=== PATIENT | male | born 1960 | race Caucasian/White ===

== ENCOUNTER → 2016-05-04 | Emergency (ER) | payer OTHER ==
[~2016-05-04] VITALS: Ht 175.3 cm; Wt 77.5 kg
[~2016-05-04] MED LIST: ALBU8.5H3 INH; AZIT500T3 PO; BENZ100C70 PO
[2016-05-04 03:10] VITALS: Ht 175.3 cm; Wt 77.5 kg
--- NOTE | 2016-05-04 03:44 | ERD ---
ER Documentation Chief Complaint Date/Time DATE: 05/04/16 TIME: 03:38 Chief Complaint htn/tachycardia for a while. HPI 56-year-old male who presents the emergency room complaining of hypertension. He states, "my resting heart rate and blood pressure has been elevated ever since I moved into [place] because of, you know, the methane gas, benzocaine, toluene and other heavy metals ". The patient denies any significant headache chest pain or shortness of breath, no nausea or vomiting. The symptoms have been present for several years. ROS All systems reviewed and are negative except as per history of present illness. Medications Home Meds Active Scripts Albuterol Sulfate* (Proair HFA*) 8.5 Gm Hfa.aer.ad, 2 PUFF INH Q4H Y for WHEEZING AND SOB, #1 INHALER Prov:ELAN CERON MD 05/15/15 Benzonatate* (Tessalon Perle*) 100 Mg Capsule, 200 MG PO Q8H Y for COUGH, #15 CAP Prov:ELAN CERON MD 05/15/15 Azithromycin* (Zithromax*) 500 Mg Tablet, 500 MG PO DAILY for 3 Days, TAB Prov:ELAN CERON MD 05/15/15 Allergies Allergies: Coded Allergies: No Known Drug Allergies (Verified Allergy, Unknown, 05/04/16) PMhx/Soc History of Surgery: Yes (tonsillectomy, jaw sx ) Anesthesia Reaction: No Hx Neurological Disorder: No Hx Respiratory Disorders: Yes (asthma) Hx Cardiac Disorders: No Hx Psychiatric Problems: Yes (BIPOLAR DISORDER) Hx Miscellaneous Medical Probl: No Hx Alcohol Use: Yes (occassional) Hx Substance Use: No Hx Tobacco Use: No Smoking Status: Never smoker FmHx Family History: No diabetes Physical Exam Vitals Vital Signs Date Time Temp Pulse Resp B/P Pulse Ox O2 Delivery O2 Flow Rate FiO2 05/04/16 03:10 98.0 78 20 167/93 99 Physical Exam General: Well developed, well nourished, no acute distress Head: Normocephalic, atraumatic. Eyes: Pupils equally reactive, EOM intact ENT: Moist mucous membranes Neck: Supple, no lymphadenopathy Respiratory: Lungs clear bilaterally, no distress Cardiovascular: RRR, no murmurs, rubs, or gallops Abdominal: Soft, non-tender, non-distended, no peritoneal signs : Deferred MSK: No edema, no unilateral swelling, 5/5 strength Neurologic: Alert and oriented, moving all extremities, normal speech, no focal weakness, no cerebellar signs Skin: No rash Psych: Normal mood Procedures/MDM Patient's blood pressure was elevated (>120/80) but appears stable without evidence of hypertensive emergency or urgency. The patient was counseled about the risks of hypertension and urged to pursue outpatient monitoring and therapy within a week with their primary care physician. I recommended initiation of antihypertensive medication. The patient said "nope ". The patient states that he needs to get a methane out of his body. I attempted to explain to the patient that methane is more of a nuisance and does not cause any significant medical issues especially not tachycardia and hypertension. I am concerned that the patient's hypertension is related to essential hypertension. The patient refuses to accept this. The patient cannot articulate why he presents to the emergency room I asked multiple times if there are other things that I can offer to help him this evening. The patient cannot articulate a solution. At this time the patient does not exhibit an acute medical condition. I am concerned that the patient's underlying issues are more related to underlying psychiatric illness versus depression versus delusions rather than acute medical condition. At this time I feel the patient is safe for discharge I strongly recommended primary care follow-up and provided referral information. The patient was discharged from the emergency room. Departure Diagnosis: Primary Impression: Essential hypertension Condition: Stable Patient Instructions: Hypertension, To Be Confirmed Referrals: [facility] YOU HAVE RECEIVED A MEDICAL SCREENING EXAM AND THE RESULTS INDICATE THAT YOU DO NOT HAVE A CONDITION THAT REQUIRES URGENT TREATMENT IN THE EMERGENCY DEPARTMENT. FURTHER EVALUATION AND TREATMENT OF YOUR CONDITION CAN WAIT UNTIL YOU ARE SEEN IN YOUR DOCTORS OFFICE WITHIN THE NEXT 1-2 DAYS. IT IS YOUR RESPONSIBILITY TO MAKE AN APPOINTMENT FOR FOLOW-UP CARE. IF YOU HAVE A PRIMARY DOCTOR --you should call your primary doctor and schedule an appointment IF YOU DO NOT HAVE A PRIMARY DOCTOR YOU CAN CALL OUR PHYSICIAN REFERRAL HOTLINE AT IF YOU CAN NOT AFFORD TO SEE A PHYSICIAN YOU CAN CHOSE FROM THE FOLLOWING [facility] [address] [facility]. [facility] [address] [facility]. [facility] [address] [facility] [address] [facility] [address] [facility]. [facility]. [address] [facility]. [facility] YOU HAVE RECEIVED A MEDICAL SCREENING EXAM AND THE RESULTS INDICATE THAT YOU DO NOT HAVE A CONDITION THAT REQUIRES URGENT TREATMENT IN THE EMERGENCY DEPARTMENT. FURTHER EVALUATION AND TREATMENT OF YOUR CONDITION CAN WAIT UNTIL YOU ARE SEEN IN YOUR DOCTORS OFFICE WITHIN THE NEXT 1-2 DAYS. IT IS YOUR RESPONSIBILITY TO MAKE AN APPOINTMENT FOR FOLOW-UP CARE. IF YOU HAVE A PRIMARY DOCTOR --you should call your primary doctor and schedule and appointment IF YOU DO NOT HAVE A PRIMARY DOCTOR YOU CAN CALL OUR PHYSICIAN REFERRAL HOTLINE AT . IF YOU CAN NOT AFFORD TO SEE A PHYSICIAN YOU CAN CHOSE FROM THE FOLLOWING [facility] INSTITUTIONS: [facility] [address] [place] [address] [facility] [address] [place] [address] [facility] + [facility] [address] [place] [address] Additional Instructions: Call your primary care doctor TOMORROW for an appointment during the next 1 WEEK.Tell the sledger that you were referred from this facility.See the doctor sooner or return here if your condition worsens before your appointment time. JERRELL JACOB MD May 04, 2016 03:44
[2016-05-04 04:15] VITALS: BP 160/90; PULSE 75; RESP 20; TEMP 98
== END | disposition home or self-care (01) ==
LOC: E/R 02:43
DX: I10 Essential (primary) hypertension (principal); J45.909 Unspecified asthma, uncomplicated
CPT/HCPCS: 99282

== ENCOUNTER 2016-05-18 02:47 | Observation (INO) | payer OTHER ==
[~2016-05-18] VITALS: Ht 175.3 cm; Wt 76.0 kg
[2016-05-18] VITALS (11 sets, daily range): BP systolic 128–168; BP diastolic 74–95; PULSE 70–84; RESP 13–24; Ht 175.3 cm; Wt 76.0 kg
--- NOTE | 2016-05-18 05:05 | RADRPT ---
PROCEDURE: CT Abdomen and pelvis without contrast. CLINICAL INDICATION: Abdominal pain. TECHNIQUE: CT scan of the abdomen and pelvis was performed on a multi-detector high-resolution CT scanner. Contiguous axial images were obtained from the lung bases to the ischial tuberosities wit hout intravenous contrast. Coronal and sagittal reformatted images were also obtained. Images were reviewed on the PACS workstation. One or more of the following dose reduction techniques were used: - Automated exposure control. - Adjustment of the mA and/or kV according to patient size. - Use of iterative reconstruction technique. Exam CTD/vol = 9.79 mGy. Total exam DLP = 565.26 mGy-cm. COMPARISON: None. FINDINGS: Evaluation of the lung bases demonstrates no pleural or parenchymal disease. Abdomen: The liver is normal in size. There is no focal mass or dilatation of the biliary tree. T he gallbladder is not distended. The spleen, pancreas and bilateral adrenal glands are within willi l limits. Bilateral kidneys are normal in size with no contour deforming mass identified. There is no radiopaque renal or ureteral calculus identified. There is no hydronephrosis or hydroureter. T here is no retroperitoneal adenopathy. The abdominal aorta is of normal caliber with scattered athe rosclerotic calcifications. There is a cone-shaped foreign body within the rectum measuring 14.5 cm in length and 7.4 cm in widt h the at the inferior base. There is no bowel obstruction or free air. A normal appendix is identi fied. There is no diverticulosis or diverticulitis. There is no ascites. Pelvis: The bladder is unremarkable. There are bilateral small inguinal hernias containing fat. T he prostate and seminal vesicles are within normal limits. There is no significant pelvic adenopath y or free fluid. Evaluation of the osseous structures demonstrates no suspicious lytic or blastic lesion. IMPRESSION: Rectal foreign body. There is no evidence of bowel obstruction, intra-abdominal collection or free air to suggest perforation. Bilateral small inguinal hernias containing fat. Mild vascular calcifications reflective of atherosclerosis. .Ravin Moe MD, MD Date Time Electronically viewed and signed by .Ravin Moe MD, MD on 05/18/2016 05:04 .T/
[2016-05-18 05:09] LABS: BASOPHILS % 0.4 % (0.0-2.0); EOSINOPHILS # 0.1 10^3/ul (0.0-0.5); EOSINOPHILS % 0.6 % (0.0-7.0); HEMATOCRIT 43.4 % (42.0-52.0); HEMOGLOBIN 14.7 g/dl (14.0-18.0); LYMPHOCYTES # 2.3 10^3/ul (0.8-2.9); MEAN CORPUSCULAR HEMOGLOBIN 29.6 pg (29.0-33.0); MEAN CORPUSCULAR HGB CONC 33.9 g/dl (32.0-37.0); MEAN CORPUSCULAR VOLUME 87.3 fl (82.0-101.0); MEAN PLATELET VOLUME 10.1 fl (7.4-10.4); MONOCYTE # 0.5 10^3/ul (0.3-0.9); MONOCYTES % 4.5 % (0.0-11.0); NEUTROPHIL # 9.2 10^3/ul (1.6-7.5); NEUTROPHILS % 75.5 % (39.0-77.0); PLATELET COUNT 292 10^3/UL (140-440); RED BLOOD COUNT 4.97 10^6/ul (4.70-6.10); RED CELL DISTRIBUTION WIDTH 13.3 % (11.5-14.5); UNCORRECTED WBC 12.2 10^3/ul (4.8-10.8); WHITE BLOOD COUNT 12.2 10^3/ul (4.8-10.8)
[2016-05-18 05:12] LABS: CONDITION 1
[2016-05-18 05:23] LABS: INR 0.91; PROTIME 12.2 Sec (12.2-14.2)
[2016-05-18 05:24] LABS: PARTIAL THROMBOPLASTIN TIME 32.5 Sec (25.0-35.0)
[2016-05-18 05:27] LABS: ALBUMIN 4.5 g/dl (3.3-4.9); POTASSIUM 4.4 mmol/L (3.5-5.1)
[2016-05-18 05:29] LABS: CREATININE 0.96 mg/dl (0.61-1.24)
[2016-05-18 05:30] LABS: ALBUMIN/GLOBULIN RATIO 1.32; BILIRUBIN,INDIRECT 0.4 mg/dl (0-1.1); BILIRUBIN,TOTAL 0.4 mg/dl (0.2-1.3); CALCIUM 9.8 mg/dl (8.4-10.2); TOTAL PROTEIN 7.9 g/dl (6.1-8.1)
[2016-05-18] MEDS ORDERED: PIPER-TAZO 3.375 GM IV (PMX) 100 ML IVPB ONE (05:30)
--- NOTE | 2016-05-18 05:54 | ERA ---
ER Documentation Chief Complaint Date/Time DATE: 05/18/16 Chief Complaint foreign body in rectum HPI The patient is a 56-year-old male, presenting to the ER because he inserted plastics expiratory into his rectum about 8 PM and he is unable to retrieve it. He has done it multiple times but this is the first of he could not retrieve it. He denies any rectal bleeding, fever, chill, neck pain, chest pain, abdominal pain, vomiting, dysuria, diarrhea. He is bisexual, denies smoking or drinking Past medical history: None Past surgical history: Jaw surgery and tonsillectomy ROS All systems reviewed and are negative except as per history of present illness. Medications Home Meds Active Scripts Albuterol Sulfate* (Proair HFA*) 8.5 Gm Hfa.aer.ad, 2 PUFF INH Q4H Y for WHEEZING AND SOB, #1 INHALER Prov:ELAN CERON MD 05/15/15 Benzonatate* (Tessalon Perle*) 100 Mg Capsule, 200 MG PO Q8H Y for COUGH, #15 CAP Prov:ELAN CERON MD 05/15/15 Azithromycin* (Zithromax*) 500 Mg Tablet, 500 MG PO DAILY for 3 Days, TAB Prov:ELAN CERON MD 05/15/15 Allergies Allergies: Coded Allergies: No Known Drug Allergies (Verified Allergy, Unknown, 05/04/16) PMhx/Soc History of Surgery: Yes (tonsillectomy, jaw sx ) Anesthesia Reaction: No Hx Neurological Disorder: No Hx Respiratory Disorders: Yes (asthma) Hx Cardiac Disorders: Yes (HTN) Hx Psychiatric Problems: Yes (BIPOLAR DISORDER) Hx Miscellaneous Medical Probl: No Hx Alcohol Use: Yes (occassional) Hx Substance Use: No Hx Tobacco Use: No Smoking Status: Never smoker Physical Exam Vitals Vital Signs Date Time Temp Pulse Resp B/P Pulse Ox O2 Delivery O2 Flow Rate FiO2 05/18/16 03:02 98.1 83 18 191/97 97 Physical Exam Const: No acute distress. Head: Atraumatic. Eyes: Normal Conjunctiva. ENT: Normal External Ears, Nose and Mouth. Neck: Full range of motion. No meningismus. Resp: Clear to auscultation bilaterally. Cardio: Regular rate and rhythm, no murmurs. Abd: Soft, non distended, normal bowel sounds, non tender. Skin: No petechiae or rashes. Back: No midline or flank tenderness. Ext: No cyanosis, or edema. Neur: Awake and alert. No focal deficit Psych: Normal Mood and Affect. Result Diagram: 05/18/160 05/18/16439 Results 24 hrs Laboratory Tests Test 05/18/16 04:40 Activated Partial Thromboplast Time 32.5Sec Alanine Aminotransferase (ALT/SGPT) 28IU/L Albumin 4.5g/dl Albumin/Globulin Ratio 1.32 Alkaline Phosphatase 72IU/L Anion Gap 19 Aspartate Amino Transf (AST/SGOT) 30IU/L Basophils # 0.010^3/ul Basophils % 0.4% Blood Urea Nitrogen 20mg/dl Calcium Level 9.8mg/dl Carbon Dioxide Level 27mmol/L Chloride Level 104mmol/L Creatinine 0.96mg/dl Direct Bilirubin 0.00mg/dl Eosinophils # 0.110^3/ul Eosinophils % 0.6% Globulin 3.40g/dl Glucose Level 111mg/dl Hematocrit 43.4% Hemoglobin 14.7g/dl INR International Normalized Ratio 0.91 Indirect Bilirubin 0.4mg/dl Lipase 51U/L Lymphocytes # 2.310^3/ul Lymphocytes % 19.0% Mean Corpuscular Hemoglobin 29.6pg Mean Corpuscular Hemoglobin Concent 33.9g/dl Mean Corpuscular Volume 87.3fl Mean Platelet Volume 10.1fl Monocytes # 0.510^3/ul Monocytes % 4.5% Neutrophils # 9.210^3/ul Neutrophils % 75.5% Nucleated Red Blood Cells # 0.010^3/ul Nucleated Red Blood Cells % 0.0/100WBC Platelet Count 17969^3/UL Potassium Level 4.4mmol/L Prothrombin Time 12.2Sec Prothrombin Time Ratio 1.0 Red Blood Count 4.9710^6/ul Red Cell Distribution Width 13.3% Sodium Level 146mmol/L Total Bilirubin 0.4mg/dl Total Protein 7.9g/dl White Blood Count 12.210^3/ul Current Medications Medications (Trade) Dose Ordered Sig/Brien Route PRN Reason Start Time Stop Time Status Last Admin Dose Admin Piperacillin Sod/ Tazobactam Sod (Zosyn 3.375gm/ 100 ml (Pmx)) 100 ml @ 200 mls/hr ONCE ONCE IVPB 05/18/16 05:30 05/18/16 05:59 05/18/16 05:51 Procedures/MDM [place] [address] Rad[address] Main Line: [phone] DIAGNOSTIC IMAGING REPORT Patient: ALEKSANDR ELI : 1960 Age: 56 Sex: M [id number] DOS: 05/18/16 0420 Ordering MD: TALAT EASTMAN MD Location: E/R Room/Bed: PROCEDURE: CT Abdomen and pelvis without contrast. CLINICAL INDICATION: Abdominal pain. TECHNIQUE: CT scan of the abdomen and pelvis was performed on a multi- detector high-resolution CT scanner. Contiguous axial images were obtained from the lung bases to the ischial tuberosities without intravenous contrast. Coronal and sagittal reformatted images were also obtained. Images were reviewed on the PACS workstation. One or more of the following dose reduction techniques were used: - Automated exposure control. - Adjustment of the mA and/or kV according to patient size. - Use of iterative reconstruction technique. Exam CTD/vol = 9.79 mGy. Total exam DLP = 565.26 mGy-cm. COMPARISON: None. FINDINGS: Evaluation of the lung bases demonstrates no pleural or parenchymal disease. Abdomen: The liver is normal in size. There is no focal mass or dilatation of the biliary tree. The gallbladder is not distended. The spleen, pancreas and bilateral adrenal glands are within normal limits. Bilateral kidneys are normal in size with no contour deforming mass identified. There is no radiopaque renal or ureteral calculus identified. There is no hydronephrosis or hydroureter. There is no retroperitoneal adenopathy. The abdominal aorta is of normal caliber with scattered atherosclerotic calcifications. There is a cone-shaped foreign body within the rectum measuring 14.5 cm in length and 7.4 cm in width the at the inferior base. There is no bowel obstruction or free air. A normal appendix is identified. There is no diverticulosis or diverticulitis. There is no ascites. Pelvis: The bladder is unremarkable. There are bilateral small inguinal hernias containing fat. The prostate and seminal vesicles are within normal limits. There is no significant pelvic adenopathy or free fluid. Evaluation of the osseous structures demonstrates no suspicious lytic or blastic lesion. IMPRESSION: Rectal foreign body. There is no evidence of bowel obstruction, intra- abdominal collection or free air to suggest perforation. Bilateral small inguinal hernias containing fat. Mild vascular calcifications reflective of atherosclerosis. .Ravin Moe MD, MD Date Time Electronically viewed and signed by .Ravin Moe MD, on 05/18/2016 05:04 .T/ CC: TALAT EASTMAN MD MEDICAL MAKING DECISION: The patient is a 56-year-old male, presenting with acute rectal foreign body. He is treated with Zosyn IV. The differential diagnoses considered include but are not limited to rectal injury, proctitis Departure Diagnosis: Primary Impression: Retained foreign body Condition: Stable Comments Consultation: I discussed the patient with the on-call general surgeon Dr. Ramachandran at 5:15 AM. He was made aware of the CT scan finding and the patient condition. He accepted the patient I discussed the findings with the patient. I discussed the patient with his physician Dr. Plaza who was made aware of the lab, the treatment, the patient condition. The patient is admitted to medical surgery bed The patient's blood pressure was elevated (>120/80) but appears stable without evidence of hypertension emergency or urgency. The patient was counseled about the risks of hypertension and urged to pursue outpatient monitoring and therapy within a week after discharge with their primary care physician. TALAT EASTMAN MD May 18, 2016 05:54
[2016-05-18] MEDS ORDERED: CEFAZOLIN 1 GM INJ ONE (07:00)
[2016-05-18] MEDS ORDERED: metroNIDAZOLE 500 MG/100 ML NS IVPB ONE (07:00)
[2016-05-18] MEDS ORDERED: morphine 2 MG INJ IV PRN (07:30)
[2016-05-18] MEDS: AMLODIPINE 5 MG TAB PO SCH (11:30)
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
[2016-05-18] MEDS ORDERED: PROPOFOL 20 ML ONE (18:17)
[2016-05-18] MEDS ORDERED: LIDOCAINE 2% (SDV) 5 ML INJ ONE (18:17)
[2016-05-18] MEDS ORDERED: FENTAnyl 50 MCG/ML VIAL ONE (18:18)
[2016-05-18] MEDS ORDERED: ONDANSETRON 4 MG INJ IV PRN (19:00)
[2016-05-18] MEDS ORDERED: ALBUTEROL 0.5% (NEB) 2.5 MG/0.5 ML AMP INH ONE (19:00)
[2016-05-18] MEDS ORDERED: METOCLOPRAMIDE 10 MG INJ IV PRN (19:00)
[2016-05-18] MEDS ORDERED: LABETALOL HCL 20MG INJ IV PRN (19:00)
[2016-05-18] MEDS ORDERED: HYDROmorphONE (0.2 MG/ML) 10ML SYG IV PRN ×3 (19:00)
[2016-05-18] MEDS ORDERED: OXYCODONE/ACETAMINOPHEN (5/325) TAB PO PRN (19:00)
[2016-05-18] MEDS ORDERED: DIPHENHYDRAMINE 50 MG INJ IV PRN (19:00)
[2016-05-18] MEDS ORDERED: FENTAnyl 50 MCG/ML VIAL IV PRN ×2 (19:00)
[2016-05-18] MEDS ORDERED: hydrALAzine 20 MG INJ IV PRN (19:00)
[2016-05-18] MEDS ORDERED: MEPERIDINE 25 MG INJ IV PRN (19:00)
--- NOTE | 2016-05-18 19:53 | CONS ---
Date/Time of Note Date/Time of Note DATE: 05/18/16 TIME: 19:44 Assessment/Plan Assessment/Plan Chief Complaint/Hosp Course 1. Rectal foreign body (anal plug) -Will proceed to OR for mild IV sedation to remove the foreign body. Patient however wants no anesthesia and I advised them it would be best to relax the muscles to be able to remove this safely. 2. Hypertension -Diet medication control 3. Asthma and history of pneumonitis -Avoid gas exposure -Medical management 4. Mild leukocytosis secondary to acute process -Monitor 5. Bipolar -Medical and psychiatric optimization Thank you very much for consulting me in this patient's care, Problems: Consultation Date/Type/Reason Admit Date/Time May 18, 2016 at 05:27 Date of Consultation: May 18, 2016 Type of Consultation: Gen. surgical Reason for Consultation Rectal foreign body (anal plug) Referring Provider: DARIA MERINO Hx of Present Illness Wyatt Rahman is a 56-year-old male who inserted an anal plug up his rectum along with his partner/fianc. 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 He's had previous total is up his rectum which were removed without anesthesia. He denies any nausea or vomiting. No fevers or chills. No chest pain or shortness of breath. No visual or neurologic changes. No dysuria. No abdominal pain. No blood per rectum. In the emergency room his workup identifies him to be afebrile with stable and normal vitals. Labs are within normal. CT scan identifies a foreign body in the rectum without perforation. Surgical consult is obtained further evaluation and treatment. 12 point review of systems negative unless her dress in history of present illness Past Medical History Hypertension Gas exposure Pneumonitis Asthma Bipolar Mild leukocytosis Past Surgical History Tonsillectomy Jaw surgery Removal of rectal foreign bodies Family History Significant Family History: no pertinent family hx Social History Bisexual and here with fianc Alcohol Use: occasionally Smoking Status: Never smoker Exam/Review of Systems Vital Signs Vitals Vital Signs Date Time Temp Pulse Resp B/P Pulse Ox O2 Delivery O2 Flow Rate FiO2 05/18/16 19:19 80 20 152/95 98 Room Air 05/18/16 19:03 98.2 Exam Constitutional: alert, oriented, No distress Psych: nl mood/affect, No anxiety Head: atraumatic, normocephalic Eyes: EOMI, PERRL, nl conjunctiva, No icteric ENMT: mucosa pink and moist, nl external ears & nose, nl lips & teeth Neck: non-tender, supple, No jvd Respiratory: normal air movement, No congested cough, No labored breathing Cardiovascular: regular rate and rhythm, No edema Gastrointestinal: non-tender, other (palpable foreign body about 10 cm up from the anal verge), soft, No distended, No rebound or guarding Genitourinary - Male: nl penis, nl scrotum Musculoskeletal: nl extremities to inspection, nl gait and stance, No joint tenderness Extremities: normal pulses, No calf tenderness, No cyanosis Neurological: nl mental status, nl speech, nl strength Skin: nl turgor, No diaphoresis, No rash or lesions Lymph: nl lymph nodes Results Result Diagram: 05/18/1643905/18/16439 Results 24 hrs Laboratory Tests Test 05/18/16 04:40 Activated Partial Thromboplast Time 32.5 Alanine Aminotransferase (ALT/SGPT) 28 Albumin 4.5 Albumin/Globulin Ratio 1.32 Alkaline Phosphatase 72 Anion Gap 19 H Aspartate Amino Transf (AST/SGOT) 30 Basophils # 0.0 Basophils % 0.4 Blood Urea Nitrogen 20 Calcium Level 9.8 Carbon Dioxide Level 27 Chloride Level 104 Creatinine 0.96 Direct Bilirubin 0.00 Eosinophils # 0.1 Eosinophils % 0.6 Globulin 3.40 H Glucose Level 111 Hematocrit 43.4 Hemoglobin 14.7 INR International Normalized Ratio 0.91 Indirect Bilirubin 0.4 Lipase 51 Lymphocytes # 2.3 Lymphocytes % 19.0 Mean Corpuscular Hemoglobin 29.6 Mean Corpuscular Hemoglobin Concent 33.9 Mean Corpuscular Volume 87.3 Mean Platelet Volume 10.1 Monocytes # 0.5 Monocytes % 4.5 Neutrophils # 9.2 H Neutrophils % 75.5 Nucleated Red Blood Cells # 0.0 Nucleated Red Blood Cells % 0.0 Platelet Count 292 Potassium Level 4.4 Prothrombin Time 12.2 Prothrombin Time Ratio 1.0 Red Blood Count 4.97 Red Cell Distribution Width 13.3 Sodium Level 146 H Total Bilirubin 0.4 Total Protein 7.9 White Blood Count 12.2 #H Medications Medications Current Medications Amlodipine Besylate (Norvasc) 5 mg DAILY PO ; Start 05/18/16 at 09:00 Morphine Sulfate (morphine) 2 mg Q2H PRN IV PAIN; Start 05/18/16 at 07:30 Influenza Virus Vaccine (Fluzone) 0.5 ml ONCE ONCE IM* ; Start 05/19/16 at 09:00 ; Stop 05/19/16 at 09:01 MELO BENITEZ MD May 18, 2016 19:53
--- NOTE | 2016-05-18 19:57 | OPR ---
Date/Time of Note Date/Time of Note DATE: 05/18/16 TIME: 19:53 Operative Report Procedure Date: May 18, 2016 Preoperative Diagnosis Rectal foreign body (anal plug) Postoperative Diagnosis Rectal foreign body (anal plug - 14 cm long and 7 cm wide) Operation Performed 1. Anoscopy 2. Removal of rectal foreign body (14 x 7 cm) Surgeon: MELO BENITEZ MD Anesthesia: other (IV sedation) Anesthesiologist: VINEET BANEGAS Estimated Blood Loss: minimal Specimens Anal plug, 14 x 7 cm Tubes/Drains None Complications: None Pt Condition Post Procedure: stable Disposition: PACU Indications As per consult note. Risks include but are not limited to bleeding, infection, abscess, seroma, leak , damage to intestines or any intra-abdominal/intrapelvic structures, hernia formation, chronic pain, need for re-operations or further surgeries, AL, stroke , PE, DVT, pneumonia, organ failures, or even . Procedure Description Patient was brought and placed supine on the operating table and after induction of mild IV sedation he was placed in lithotomy and prepped and draped in usual fashion. Anus was lubricated and the rectal canal was examined with a anal scope. The foreign body was an easily visible. However the foreign body is palpable. I was able to grasp it but not able to pull it out due to the vacuum behind it. At this point more anesthesia was administered to relax the patient. I was able to grasp the foreign body better and put a clamp on the edge of it. With very gentle manipulation I was able to fully remove the foreign body in its entirety. There was made very minimal blood but no active bleeding. Specimen was sent to pathology. Patient was taken back to recovery room in stable condition. All counts were correct at the end the operation 2. MELO BENITEZ MD May 18, 2016 19:57
[2016-05-19 07:23] VITALS: BP 123/81; RESP 16
[2016-05-19] MEDS: AMLODIPINE 5 MG TAB PO SCH (08:32)
[2016-05-19] MEDS ORDERED: INFLUENZA VIRUS VACCINE 0.5 ML (DISPENSING) IM* ONE (09:00)
--- NOTE | 2016-05-19 11:09 | DS ---
Date/Time of Note Date/Time of Note DATE: 05/19/16 TIME: 11:07 Discharge Summary Admission/Discharge Info Admit Date/Time May 18, 2016 at 05:27 Discharge Date/Time May 19, 2016 Final Diagnosis Foreign object in rectum, removed surgically Patient Condition: Good Consults Robert Ramachandran MD (general surgery) Procedures Anoscopic exploration of rectum, under general anesthesia Hx of Present Illness 56-year-old patient of Dr. Adrian Patel in good health who presented night before last with inability to remove a familiar sex toy from the rectum. His only medical problems chronically are treated hypertension, asthma, and bipolar disorder. Hospital Course Per Dr. Ramachandran's detailed operative report, the item was visualized under anoscopy and eventually grasped with forceps under anesthesia. Removal occurred without any incisions. Patient feels back to normal this morning, passing flatus but without bowel movement yet. No nausea or pain complaints. Normal physical exam. Home Meds Active Scripts Albuterol Sulfate* (Proair HFA*) 8.5 Gm Hfa.aer.ad, 2 PUFF INH Q4H Y for WHEEZING AND SOB, #1 INHALER Prov:ELAN CERON MD 05/15/15 Discontinued Scripts Benzonatate* (Tessalon Perle*) 100 Mg Capsule, 200 MG PO Q8H Y for COUGH, #15 CAP Prov:ELAN CERON MD 05/15/15 Azithromycin* (Zithromax*) 500 Mg Tablet, 500 MG PO DAILY for 3 Days, TAB Prov:ELAN CERON MD 05/15/15 Follow-up Plan Routine followup with with Dr. Patel (his PCP). Pending Labs None Copies To: CC: DARIA MERINO SAMUEL MD WHELAN, JOHN P. M.D. May 19, 2016 11:09 pressure 151/91. Patient is satting 98% on room air. GENERAL: He is alert and oriented x4. He is in no acute distress currently, he is very comfortable. HEENT: Pupils are equally round and reactive to light. Extraocular muscles are intact. Anicteric sclerae. NECK: No JVD, no thyromegaly noted. HEART: Regular rate and rhythm. LUNGS: Clear to auscultation bilaterally. ABDOMEN: Soft, nontender, nondistended. Bowel sounds are present. EXTREMITIES: No edema, clubbing or cyanosis. NEUROLOGIC: Grossly intact. Of note I did not perform a rectal exam on the patient, but his abdomen is soft. LABORATORY DATA: White blood cell count is 12.2, hemoglobin 14.7, hematocrit 43.4, platelet count is 292. Chemistry with a sodium of 146, potassium 4.4, chloride 104, bicarbonate 27, BUN 20, creatinine 0.96. Liver function tests are within normal. Lipase of 51. INR is 0.91. PT 12.2, PTT 32.5. RADIOLOGICAL DATA: CAT scan of the abdomen and pelvis without contrast is showing rectal foreign body cone-shaped measuring 14.5 cm in length, 7.4 cm in width at the inferior base. No bowel obstruction. No intraabdominal collection of free air to suggest perforation, bilateral small inguinal hernia containing fat, mild vascular calcification reflective of atherosclerosis. ASSESSMENT AND PLAN: This is a 56-year-old male with: 1. Foreign body in the rectum which seems to be stuck at this time. Will need general surgery to see the patient for removal of the foreign body. Dr. Robert Ramachandran has been notified and consulted overnight. The patient is currently n.p.o. awaiting surgical intervention. Hopefully, this can be done minimally invasive. 2. Hypertension, currently likely related to discomfort and/or pain. Patient is refusing medications. We will just continue to monitor. 3. Prophylaxis, not needed. Hospital Course 1. Rectal foreign body (anal plug) -Will proceed to OR for mild IV sedation to remove the foreign body. Patient however wants no anesthesia and I advised them it would be best to relax the muscles to be able to remove this safely. 2. Hypertension -Diet medication control 3. Asthma and history of pneumonitis -Avoid gas exposure -Medical management 4. Mild leukocytosis secondary to acute process -Monitor 5. Bipolar -Medical and psychiatric optimization Thank you very much for consulting me in this patient's care, Home Meds Active Scripts Albuterol Sulfate* (Proair HFA*) 8.5 Gm Hfa.aer.ad, 2 PUFF INH Q4H Y for WHEEZING AND SOB, #1 INHALER Prov:ELAN CERON MD 05/15/15 Benzonatate* (Tessalon Perle*) 100 Mg Capsule, 200 MG PO Q8H Y for COUGH, #15 CAP Prov:ELAN CERON MD 05/15/15 Azithromycin* (Zithromax*) 500 Mg Tablet, 500 MG PO DAILY for 3 Days, TAB Prov:ELAN CERON MD 05/15/15 YOJANA DESAI M.D. May 19, 2016 11:09
--- NOTE | 2016-05-19 11:23 | PDOCDIS ---
Discharge Instructions DIAGNOSIS Discharge Diagnosis: Rectal foreign body, s/p removal CONDITION Patient Condition: Good HOME CARE INSTRUCTIONS: Diet Instructions: 2gm Na ACTIVITY: Activity Restrictions: No Restrictions FOLLOW UP/APPOINTMENTS Appointments Routine follow-up with Dr. Adrian Patel. YOJANA DESAI M.D. May 19, 2016 11:23
[2016-05-19 11:47] LABS: POTASSIUM 4.3 mmol/L (3.5-5.1)
[2016-05-19 11:50] LABS: CREATININE 0.81 mg/dl (0.61-1.24)
[2016-05-19 11:51] LABS: CALCIUM 9.1 mg/dl (8.4-10.2)
[2016-05-19 12:18] LABS: HEMATOCRIT 41.5 % (42.0-52.0); HEMOGLOBIN 13.6 g/dl (14.0-18.0); RED BLOOD COUNT 4.66 10^6/ul (4.70-6.10); UNCORRECTED WBC 7.9 10^3/ul (4.8-10.8); WHITE BLOOD COUNT 7.9 10^3/ul (4.8-10.8)
[2016-05-19 12:22] LABS: BASOPHIL # 0.1 10^3/ul (0.0-0.1); BASOPHILS % 0.8 % (0.0-2.0); EOSINOPHILS # 0.3 10^3/ul (0.0-0.5); EOSINOPHILS % 3.5 % (0.0-7.0); LYMPHOCYTES # 2.2 10^3/ul (0.8-2.9); LYMPHOCYTES % 27.2 % (15.0-51.0); MEAN CORPUSCULAR HEMOGLOBIN 29.2 pg (29.0-33.0); MEAN CORPUSCULAR HGB CONC 32.8 g/dl (32.0-37.0); MEAN CORPUSCULAR VOLUME 89.1 fl (82.0-101.0); MEAN PLATELET VOLUME 11.6 fl (7.4-10.4); MONOCYTE # 0.6 10^3/ul (0.3-0.9); MONOCYTES % 7.6 % (0.0-11.0); NEUTROPHIL # 4.8 10^3/ul (1.6-7.5); NEUTROPHILS % 60.4 % (39.0-77.0); PLATELET COUNT 242 10^3/UL (140-440); RED CELL DISTRIBUTION WIDTH 12.9 % (11.5-14.5)
--- NOTE | 2016-05-19 15:43 | PN ---
Date/Time of Note Date/Time of Note DATE: 05/19/16 TIME: 15:41 Assessment/Plan Lines/Catheters [facility] Saline Lock Assessment/Plan Chief Complaint/Hosp Course 1. Rectal foreign body (anal plug) s/p removal 05/18 2. Hypertension -Diet medication control 3. Asthma and history of pneumonitis -Avoid gas exposure -Medical management 4. Mild leukocytosis secondary to acute process resolved 5. Bipolar -Medical and psychiatric optimization Thank you, Problems: Subjective 24 Hr Interval Summary No f/c. No n/v. No cp/sob. No cough. No dai/dizzy/visual or neuro changes. No pyuria or dysuria. Flatus. No bleeding. WBC normalized. Exam/Review of Systems Vital Signs Vitals Vital Signs Date Time Temp Pulse Resp B/P Pulse Ox O2 Delivery O2 Flow Rate FiO2 05/19/16 07:23 98.4 72 16 123/81 97 05/18/16 19:24 Room Air Intake and Output 05/18/16 05/18/16 05/19/16 15:00 23:00 07:00 Intake Total 200 ml 1020 ml Output Total 0 ml Balance 200 ml 1020 ml Exam Free Text/Dictation Constitutional: alert, oriented, No distress Psych: nl mood/affect, No anxiety Head: atraumatic, normocephalic Eyes: EOMI, PERRL, nl conjunctiva, No icteric ENMT: mucosa pink and moist, nl external ears & nose, nl lips & teeth Neck: non-tender, supple, No jvd Respiratory: normal air movement, No congested cough, No labored breathing Cardiovascular: regular rate and rhythm, No edema Gastrointestinal: non-tender, soft, No distended, No rebound or guarding Genitourinary - Male: nl penis, nl scrotum Musculoskeletal: nl extremities to inspection, nl gait and stance, No joint tenderness Extremities: normal pulses, No calf tenderness, No cyanosis Neurological: nl mental status, nl speech, nl strength Skin: nl turgor, No diaphoresis, No rash or lesions Lymph: nl lymph nodes Results Result Diagram: 05/19/16 1125 05/19/16 1125 MELO BENITEZ MD May 19, 2016 15:43
== END 2016-05-19 13:00 | disposition home or self-care (01) ==
LOC: E/R 02:47 → MS2 05:27 → INTOOBSV 05:27
PROVIDERS: ADMIT Legal Medicine; ATTEND Legal Medicine
DX: T18.5XXA Foreign body in anus and rectum, initial encounter (principal); X58.XXXA Exposure to other specified factors, initial encounter; Y99.8 Other external cause status; Y92.89 Other specified places as the place of occurrence of the external cause; I10 Essential (primary) hypertension; J45.909 Unspecified asthma, uncomplicated; F31.9 Bipolar disorder, unspecified
CPT/HCPCS: 36415; 45915; 74176; 80048; 80053; 83690; 85025; 85610; 85730; 88300; 96374; J0690; J2543; J3010; Z7500; Z7502; Z7512; Z7610; 90686; 99217; G0378

== ENCOUNTER 2017-09-30 16:21 | Emergency (ER) | END 2017-09-30 17:00 | disposition left against medical advice (07) ==

== ENCOUNTER 2017-11-23 10:14 | Emergency (ER) | END 2017-11-23 14:37 | disposition home or self-care (01) ==

== ENCOUNTER 2018-01-30 21:52 | Emergency (ER) | END 2018-01-31 01:21 | disposition home or self-care (01) ==